=== PATIENT | female | born 1975 | race Caucasian/White ===

== ENCOUNTER 2017-01-18 17:01 | Emergency (ER) | payer BC ==
[~2017-01-18] VITALS: Ht 167.6 cm; Wt 71.7 kg
[2017-01-18 20:44] VITALS: BP 120/80
== END 2017-01-18 20:45 | disposition home or self-care (01) ==
LOC: RME 17:01 → EME 17:01 → RME 20:45
DX: L76.81 Other intraoperative complications of skin and subcutaneous tissue (principal); T15.92XA Foreign body on external eye, part unspecified, left eye, initial encounter; Y84.8 Other medical procedures as the cause of abnormal reaction of the patient, or of later complication, without mention of misadventure at the time of the procedure; Y92.532 Urgent care center as the place of occurrence of the external cause
CPT/HCPCS: 99281; 99283